=== PATIENT | female | born 1940 | race Caucasian/White ===

== ENCOUNTER 2017-08-25 06:21 | Day surgery (SDC) | payer MEDICARE ==
[~2017-08-25] VITALS: Ht 160 cm; Wt 55.0 kg
[2017-08-25] VITALS (8 sets, daily range): BP systolic 100–155; BP diastolic 50–88; PULSE 53–63; RESP 16–20; TEMP 97.6; O2SAT 94–99
[~2017-08-25 06:21] MED LIST: ACIDCAP17 PO; ASPI81 PO; ATOR20TA42 PO; CITRACAL PO; COQ-100C2; LEVO88TA21 PO; NORV5TAB PO; TAB-TAB PO; VIT D PO
[2017-08-25] MEDS ORDERED: CO Q200C PO (06:57)
[2017-08-25] MEDS ORDERED: MULTTAB67 PO (06:57)
[2017-08-25] MEDS ORDERED: ASPI81CH37 CHEW (06:57)
[2017-08-25] MEDS ORDERED: ACIDCAP5 PO (06:57)
[2017-08-25] MEDS ORDERED: WHEA1POW13 PO (06:57)
[2017-08-25] MEDS ORDERED: AMLO5TAB2 PO (06:57)
[2017-08-25] MEDS ORDERED: ATOR20TA15 PO (06:57)
[2017-08-25] MEDS ORDERED: LEVO88TA2 PO (06:57)
[2017-08-25] MEDS ORDERED: SODIUM CHLOR 0.9% 1000 ML INJ 1,000 ML IV SCH (07:00)
[2017-08-25 07:19] LABS: AUTOMATED NEUTROPHIL # 2.7 TH/MM3 (1.8-7.7); BASOPHIL % 0.7 % (0.0-2.0); EOSINOPHIL # 0.1 TH/MM3 (0-0.4); EOSINOPHIL % 2.9 % (0.0-4.0); HEMATOCRIT 41.2 % (35.0-46.0); HEMO FLAGS DIFF FINAL; LYMPHOCYTE # 1.4 TH/MM3 (1.0-4.8); MEAN CELL VOLUME 91.3 FL (80.0-100.0); MEAN CORPUSCULAR HEMOGLOBIN 30.7 PG (27.0-34.0); MEAN CORPUSCULAR HGB CONC 33.6 % (32.0-36.0); MONO % 9.5 % (0.0-8.0); NEUT % 56.9 % (16.0-70.0); PLATELET COUNT 217 TH/MM3 (150-450); RED BLOOD COUNT 4.52 MIL/MM3 (4.00-5.30); WHITE BLOOD COUNT 4.8 TH/MM3 (4.0-11.0)
[2017-08-25] MEDS ORDERED: LIDOCAINE HCL 1% 20 ML VIAL ONE (07:38)
[2017-08-25 07:48] LABS: PROTHROMBIN TIME - PATIENT 10.6 SEC (9.8-11.6)
[2017-08-25] MEDS ORDERED: MIDAZOLAM HCL 5 MG/5 ML VIAL ONE (08:02)
[2017-08-25] MEDS ORDERED: oxyCODONE/ACETAMINOPHEN 5 MG/325 MG TAB PO PRN (08:45)
--- NOTE | 2017-08-25 08:47 | PD.RAD ---
Post CT Procedure Prog Note Pre Procedure Diagnosis: (1) Lung nodule Post Procedure Diagnosis: (1) Lung nodule Procedure Date: Aug 25, 2017 Supervising Radiologist: Dilan Bass JR Anesthesia: Conscious Sedation Plan of Activity Patient to Unit: [facility]OP[facility] Patient Condition: Good See PACS Report for procedural detail/treatment Biopsy Imaging Guidance: CT Side: Right Biopsy Procedure: Lung Specimen: Core Biopsy Findings: Biopsy of small right upper lobe nodule. Prior PET/CT reviewed. Post bx CT shows mild hemorrhage. No PTX Plan F/U CXR Jr. Kali,Dilan Walker MD Aug 25, 2017 08:47
--- NOTE | 2017-08-25 12:30 | RADRPT ---
EXAM DATE/TIME: 08/25/2017 11:58 [facility] COMPARISON: No previous studies available for comparison. INDICATIONS : Post needle biopsy right lung, evaluate for pneumothorax, no shortness of breath, no pain MEDICAL HISTORY : None. SURGICAL HISTORY : None. ENCOUNTER: Subsequent ACUITY: 1 day PAIN SCORE: 0/10 LOCATION: Right chest FINDINGS: A single frontal expiratory view of the chest was performed. The lungs are symmetrically aerated and clear. No evidence of pneumothorax. 1.8 cm nodule within the right lung base. Mediastinal structur es are in the midline. Heart is mildly enlarged. The cardio-mediastinal contours and bronchopulmonary markings are unremarkable for an expiratory exam . Osseous structures are intact. CONCLUSION: 1. No pneumothorax following right-sided lung biopsy. Dilan Bass Jr., MD on August 25, 2017 at 12:28 Board Certified Radiologist. This report was verified electronically.
--- NOTE | 2017-08-25 12:39 | RADRPT ---
EXAM DATE/TIME: 08/25/2017 08:17 [facility] COMPARISON: No previous studies available for comparison. INDICATIONS : Right lung mass. SEDATION TIME: 30 minutes BIOPSY SITE: Right flank MEDICATION(S): 1.) 3 mg midazolam (Versed) IV 2.) 125 mcg fentanyl (Sublimaze) IV DEVICE(S): 1.) 19 gauge micropuncture introducer 2.) 20 gauge Temno core biopsy needle MEDICAL HISTORY : Cardiovascular disease. Hypertension. Osteoporosis. SURGICAL HISTORY : Tonsillectomy. ENCOUNTER: Initial ACUITY: 1 day PAIN SCORE: 0/10 LOCATION: Right upper quadrant A total of two core specimen(s) were obtained and sent to the laboratory for pathologic evaluation. PROCEDURE: 1. CT guided lung biopsy. Prior to the procedure informed consent was obtained. Any appropriate prior imaging studies were rev iewed. A small right upper lobe pulmonary nodule was identified and targeted during the biopsy. This measures approximately 1 cm in diameter. Using automated exposure control and adjustment of the mA an d/or kV according to patient size, radiation dose was kept as low as reasonably achievable to obtain optimal diagnostic quality images. DICOM format image data is available electronically for review an d comparison. The site was prepped in a sterile fashion. Full sterile technique was used, including cap, mask, reese rile gloves and gown and a large sterile sheet. Hand hygiene and 2% chlorhexidine and/or betadine/al cohol prep was utilized per protocol for cutaneous antisepsis. The skin and subcutaneous tissues wer e infiltrated with local anesthetic solution. With CT guidance the previously identified target was localized. Biopsy was performed using the presc ribed needle as above. Adequate hemostasis was obtained with compression at the puncture site. Follow-up CT scan reveals no pneumothorax. A small volume of hemorrhage is observed. Conscious sedation was performed with the prescribed dosages and duration as above in the presence of an independent trained radiology nurse to assist in the monitoring of the patient. EKG and oximetry remained stable throughout the procedure. The patient tolerated the procedure well and there were no complications. The patient was sent to Radiology Outpatient Unit in stable condition. CONCLUSION: Uncomplicated CT guided biopsy of a 1 cm right upper lobe pulmonary nodule. Dilan Bass Jr., MD on August 25, 2017 at 12:36 Board Certified Radiologist. This report was verified electronically.
== END 2017-08-25 13:30 | disposition home or self-care (01) ==
LOC: HRAD 06:21 → HRIP 06:22 → HRAD 13:30
DX: R91.1 Solitary pulmonary nodule (principal); I10 Essential (primary) hypertension; I25.10 Atherosclerotic heart disease of native coronary artery without angina pectoris; M81.0 Age-related osteoporosis without current pathological fracture
CPT/HCPCS: 32405; 71010; 77012; 85025; 85610; 85730; 88305; 88312; J2250; J3010; J7030